=== PATIENT | female | born 1945 | race Caucasian/White ===

== ENCOUNTER → 2025-02-20 | Outpatient (CLI) | payer MEDICARE, SELFPAY ==
--- NOTE | 2025-02-20 09:51 | ART_ITS ---
Reason For Study Reason For Study: PVD Procedure A bilateral lower extremity continuous wave Doppler with analog waveform analysis,segmental pressures,and ankle brachial indexes without exercise. Left Segmental Pressures Left brachial= 152mmHg. Left posterior tibial artery = 205mmHg. Left dorsalis pedis artery = 188mmHg. Left digit = 105 mmHg. The left posterior tibial artery waveforms are triphasic. The left dorsalis pedis waveforms are triphasic. Right Segmental Pressures Right brachial= 156mmHg. Right posterior tibial artery = 182mmHg. Right dorsalis pedis artery = 167mmHg. Right digit = 143 mmHg. The right posterior tibial artery waveforms are triphasic. The right dorsalis pedis waveforms are triphasic. Indices The right ankle brachial index by the posterior tibial artery is 1.17. The right ankle brachial index by the dorsalis pedis is 1.07. The right digital-brachial index is 0.92. The left ankle brachial index by the posterior tibial artery is 1.31. The left ankle brachial index by the dorsalis pedis is 1.21. The left digital-brachial index is 0.67. VL/Lower Ext Art Exam w/o Exercis Interpretation Summary Triphasic Doppler waveforms are noted at ankle level bilaterally. Pulse-volume recordings appear satisfactory at all levels bilaterally. Resting ankle-brachial indices are normal bilaterally. The right digital-brachial index is normal. The left digital-brachial index is mildly diminished. Arterial flow appears normal at ankle level bilaterally, and at digital level o n the right. 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 Ordering Physician: Guille Etienne Referring Physician: Tessy Hou Performed By: Alfonzo Melchor RVT and Student
--- NOTE | 2025-02-20 09:51 | VDLE_ITS ---
Reason For Study Reason For Study: BLE Pain RIGHT LEFT CFV is compressible, spontaneous, phasic, competent CFV is compressible, spontaneous, phasic, competent, and demonstrates normal augmentation. and demonstrates normal augmentation. FV is compressible, spontaneous, phasic, competent FV is compressible, spontaneous, phasic, competent and demonstrates normal augmentation. and demonstrates normal augmentation. POP V is compressible, spontaneous, phasic, competent POP V is compressible, spontaneous, phasic, competent and demonstrates normal augmentation. and demonstrates normal augmentation. T/P Trunk is compressible. T/P Trunk is compressible. PTV is compressible. PTV is compressible. RT PerV is compressible. LT PerV is compressible. SFJ is INCOMPETENT and measures 0.57 cm. Lt Gastrocnemius is PARTIALLY COMPRESSIBLE with GSV proximal thigh measures 0.57 x 0.57 cm. hyperechoic intraluminal echoes. Finding is Unable to visualize Rt Knee GSV. consistent with CHRONIC DVT. GSV INCOMPETENT throughout for greater than 0.5 Edema Noted throughout Lt Calf. seconds. SFJ is competent and measures 0.70 cm. SSV at junction is competent and measures 0.51 cm. GSV proximal thigh measures 0.59 x 0.60 cm. SSV mid calf is competent and measures 0.34 x 0.35 GSV at knee measures 0.44 x 0.44 cm. cm. GSV above knee is competent. Procedure GSV below knee is INCOMPETENT for greater than 0.5 Exam performed in department. seconds. This is a venous duplex using B-mode, color flow and SSV at junction is competent and measures 0.47 cm. spectral Doppler. SSV mid calf is competent and measures 0.29 x 0.30 The exam was diagnostic. cm. Patient was scanned in reverse Trendelenburg position during reflux assessment. VL/Venous Duplex US - Antoni Extrem Interpretation Summary Deep veins of the right lower extremity are patent and compressible segmentally . There is no evidence of right lower extremity deep vein thrombosis. Chronic venous changes are noted in the left ga strocnemius vein, which is partially compressible and demonstrates bright intraluminal echogenicity. The remainder o f the left lower extremity deep venous system is patent and compressible. Valvular competence appears intact within th e proximal deep venous systems bilaterally. The right sapheno-femoral junction is incompetent . The left saphe no-femoral junction is competent . The right great saphenous vein appears segmentally incompetent. The left great saph enous vein appears competent above the knee. The left great saphenous vein appears incompetent below the knee. Small s aphenous veins are patent and competent bilaterally. The right great saphenous vein was not visualized at the level of the knee. Ordering Physician: Guille Etienne Referring Physician: Tessy Hou Performed By: Alfonzo Melchor RVT and Student
== END | disposition home or self-care (01) ==
LOC: CVS 09:48
PROVIDERS: PCP Student in an Organized Health Care Education/Training Program; Referring Provider Podiatrist Foot & Ankle Surgery; Visit Provider Podiatrist Foot & Ankle Surgery
DX: M79.662 Pain in left lower leg (principal); M79.661 Pain in right lower leg; I73.89 Other specified peripheral vascular diseases
CPT/HCPCS: 93923; 93970